=== PATIENT | male | born 1940 | race Caucasian/White ===

== ENCOUNTER 2019-03-02 06:29 | Inpatient (IN) | payer MEDICARE, OTHER, MEDICAID ==
[2019-03-02 06:57] LABS: ADD MAN DIFF? NO
[2019-03-02 06:58] LABS: WHITE BLOOD COUNT 13.9 10^3/ul (4.8-10.8)
[2019-03-02 06:58] LABS: BASOPHIL # 0.1 10^3/ul (0.0-0.1); BASOPHILS % 0.4 % (0.0-2.0); EOSINOPHILS % 0.1 % (0.0-7.0); HEMATOCRIT 39.2 % (42.0-52.0); HEMOGLOBIN 11.6 g/dl (14.0-18.0); LYMPHOCYTES # 1.3 10^3/ul (0.8-2.9); LYMPHOCYTES % 9.3 % (15.0-51.0); MEAN CORPUSCULAR HGB CONC 29.6 g/dl (32.0-37.0); MEAN PLATELET VOLUME 10.9 fl (7.4-10.4); MONOCYTE # 0.9 10^3/ul (0.3-0.9); MONOCYTES % 6.2 % (0.0-11.0); NEUTROPHIL # 11.7 10^3/ul (1.6-7.5); NEUTROPHILS % 83.7 % (39.0-77.0); PLATELET COUNT 319 10^3/UL (140-415); RED BLOOD COUNT 3.63 10^6/ul (4.70-6.10); RED CELL DISTRIBUTION WIDTH 14.6 % (11.5-14.5)
[2019-03-02] MEDS: PIPER-TAZO 3.375 GM IV (PMX) 100 ML IVPB (07:05)
[2019-03-02] MEDS: SODIUM CHLORIDE 0.9% 1L BAG IV* (07:09)
[2019-03-02 07:16] LABS: ALANINE AMINOTRANSFERASE 24 IU/L (13-69); ALBUMIN 3.6 g/dl (3.3-4.9); ALBUMIN/GLOBULIN RATIO 0.75; ALKALINE PHOSPHATASE 114 IU/L (42-121); ANION GAP 4 (5-13); ASPARTATE AMINO TRANSFERASE 14 IU/L (15-46); BILIRUBIN,INDIRECT 0.5 mg/dl (0-1.1); BILIRUBIN,TOTAL 0.5 mg/dl (0.2-1.3); BLOOD UREA NITROGEN 43 mg/dl (7-20); CALCIUM 9.3 mg/dl (8.4-10.2); CARBON DIOXIDE 33 mmol/L (21-31); CHLORIDE 120 mmol/L (97-110); CREATININE 1.77 mg/dl (0.61-1.24); GLUCOSE 169 mg/dl (70-220); POTASSIUM 5.1 mmol/L (3.5-5.1); SODIUM 157 mmol/L (135-144); TOTAL PROTEIN 8.4 g/dl (6.1-8.1)
[2019-03-02 07:18] LABS: INR 1.29; PROTIME 16.2 Sec (11.9-14.9); PT RATIO 1.3
[2019-03-02 07:19] LABS: PARTIAL THROMBOPLASTIN TIME 36.6 Sec (23.0-35.0)
[2019-03-02 07:38] LABS: ADD UMIC YES; UR ASCORBIC ACID 40 mg/dL (NEGATIVE); UR BACTERIA FEW /HPF (NONE SEEN); UR BILIRUBIN (Dip) NEGATIVE (NEGATIVE); UR BLOOD (Dip) NEGATIVE (NEGATIVE); UR CLARITY CLOUDY (CLEAR); UR COLOR AMBER (YELLOW); UR GLUCOSE (Dip) NEGATIVE (NEGATIVE); UR HYALINE CAST FEW /HPF (NONE SEEN); UR KETONES (Dip) TRACE mg/dL (NEGATIVE); UR LEUKOCYTE ESTERASE (Dip) 1+ Leu/ul (NEGATIVE); UR MUCUS FEW /HPF (NONE SEEN); UR NITRITE (Dip) NEGATIVE (NEGATIVE); UR RBC 12 /HPF (0-5); UR SPECIFIC GRAVITY (Dip) 1.024 (1.003-1.030); UR TOTAL PROTEIN (Dip) 2+ mg/dl (NEGATIVE); UR UROBILINOGEN (Dip) 1+ mg/dL (NEGATIVE); UR WBC 45 /HPF (0-5)
[2019-03-02] MEDS: VANCOMYCIN 1 GM (PMX) 250 ML IVPB (07:54)
[2019-03-02] MEDS: LORAZEPAM 2 MG INJ IV ×3 (08:27→23:02)
[2019-03-02] MEDS ORDERED: ONDANSETRON 4 MG INJ IV ×2 (08:30→13:30)
[2019-03-02] MEDS ORDERED: ACETAMINOPHEN 325 MG TAB PO (08:30)
[2019-03-02] MEDS: HALOPERIDOL 5 MG INJ IM (08:51)
[2019-03-02] MEDS: ACETAMINOPHEN 650MG/20.3ML CUP GTB (09:15)
[2019-03-02] MEDS: LIDOCAINE 1% (MPF) 5 ML VIAL SC (10:30)
[2019-03-02] MEDS: SOD CHLORIDE 0.9% 1,000 ML IV ×2 (10:30→18:11)
[2019-03-02] MEDS: NORepinephrine 8MG/250 ML (PMX 250 ML IV (10:31)
[2019-03-02 10:33] LABS: LACTIC ACID 6.7 mmol/L (0.5-2.0)
[2019-03-02] MEDS: KETOROLAC 30 MG INJ IV (11:32)
[2019-03-02 12:43] LABS: AADO2 Arterial 256.9 mmHg (7.0-24.0); Allen Test ACCEPTAB; Arterial Base Excess -0.4 mmol/L (-3.0-3); Arterial Blood Gas Oxygen Sat 95.8 mmHG (95.0-100.0); Arterial COHb 0.3 % (0.0-3.0); Arterial Fraction of Oxyhgb 95.2 % (93.0-99.0); Arterial HCO3 23.1 mmol/L (22.0-26.0); Arterial MetHb 0.3 % (0.0-1.5); Arterial pCO2 33.5 mmhg (35-45); MODE MASK - SIMPLE; Site Right Radial
[2019-03-02] MEDS ORDERED: VANCOMYCIN IV PER PHARMACY XX (13:30)
[2019-03-02] MEDS ORDERED: ALBUTEROL/IPRATROPIUM (NEB) 3 ML AMP NEB (13:30)
[2019-03-02 14:12] LABS: MAGNESIUM 2.4 mg/dl (1.7-2.5)
[2019-03-02 14:12] LABS: POTASSIUM 5.3 mmol/L (3.5-5.1)
[2019-03-02 14:25] LABS: LACTIC ACID 3.5 mmol/L (0.5-2.0)
[2019-03-02 14:42] LABS: CREATINE KINASE 106 IU/L (23-200)
[2019-03-02 14:50] LABS: VALPROATE < 10 ug/ml (50-100)
[2019-03-02 14:52] LABS: CK INDEX 1.3; CK-MB 1.42 ng/ml (0.0-2.4)
[2019-03-02 14:56] LABS: TROPONIN-I 0.044 ng/ml (0.000-0.120)
[2019-03-02] MEDS: PIPER-TAZO 2.25 GM (PMX) 50 ML IVPB (17:00)
[2019-03-02 20:00] LABS: CREATINE KINASE 226 IU/L (23-200)
[2019-03-02 20:12] LABS: CK INDEX 0.9; CK-MB 2.13 ng/ml (0.0-2.4); TROPONIN-I 0.044 ng/ml (0.000-0.120)
[2019-03-02] MEDS ORDERED: LABETALOL HCL 20MG INJ (20:17)
[2019-03-02] MEDS: LABETALOL HCL 20MG INJ IV ×2 (20:20→21:01)
[2019-03-02] MEDS: DOCUSATE SODIUM 100 MG CAP PO (20:20)
[2019-03-02] MEDS: HEPARIN 5,000 UNIT/1 ML VIAL SC (20:25)
[2019-03-02 20:28] LABS: ANION GAP 6 (5-13); BLOOD UREA NITROGEN 43 mg/dl (7-20); CALCIUM 7.8 mg/dl (8.4-10.2); CARBON DIOXIDE 24 mmol/L (21-31); CHLORIDE 126 mmol/L (97-110); CREATININE 1.73 mg/dl (0.61-1.24); GLUCOSE 91 mg/dl (70-220); SODIUM 156 mmol/L (135-144)
[2019-03-02] MEDS: ALBUTEROL/IPRATROPIUM (NEB) 3 ML AMP NEB (20:33)
[2019-03-02] MEDS: ACETAMINOPHEN 650MG/20.3ML CUP PO (23:01)
[2019-03-02] MEDS: DIVALPROEX (ER) 500 MG TAB PO (23:01)
[2019-03-02 23:31] LABS: Allen Test ACCEPTAB; Arterial Blood Gas Oxygen Sat 98.9 mmHG (95.0-100.0); Arterial COHb 0.2 % (0.0-3.0); Arterial Fraction of Oxyhgb 98.2 % (93.0-99.0); Arterial HCO3 23.7 mmol/L (22.0-26.0); Arterial MetHb 0.5 % (0.0-1.5); Blood Gas IEPAP 15/5; Blood Gas PS 10; MODE MASK - BIPAP; Site Left Radial
[2019-03-03] MEDS: LORAZEPAM 2 MG INJ IV ×3 (00:30→06:50)
[2019-03-03] MEDS: PIPER-TAZO 2.25 GM (PMX) 50 ML IVPB (00:33)
[2019-03-03] MEDS: SOD CHLORIDE 0.9% 500 ML IV ×2 (01:32→06:49)
[2019-03-03] MEDS: ALBUTEROL/IPRATROPIUM (NEB) 3 ML AMP NEB ×3 (01:55→08:43)
[2019-03-03 03:19] LABS: Allen Test ACCEPTAB; Arterial Base Excess -3.3 mmol/L (-3.0-3); Arterial COHb 0.2 % (0.0-3.0); Arterial Fraction of Oxyhgb 98.2 % (93.0-99.0); Arterial HCO3 21.1 mmol/L (22.0-26.0); Arterial MetHb 0.6 % (0.0-1.5); Arterial pCO2 35.2 mmhg (35-45); Blood Gas IEPAP 15/5; MODE MASK - BIPAP; Site Left Radial
[2019-03-03] MEDS: SOD CHLORIDE 0.9% 1,000 ML IV (03:42)
[2019-03-03] MEDS: PANTOPRAZOLE (EC) 40 MG TAB PO (05:29)
[2019-03-03 05:36] LABS: ABNORMAL IP MESSAGE 1; HEMATOCRIT 27.3 % (42.0-52.0); MEAN CORPUSCULAR HEMOGLOBIN 32.5 pg (29.0-33.0); MEAN CORPUSCULAR HGB CONC 29.3 g/dl (32.0-37.0); PLATELET COUNT 211 10^3/UL (140-415); POSITIVE DIFF @See below; RED BLOOD COUNT 2.46 10^6/ul (4.70-6.10); RED CELL DISTRIBUTION WIDTH 15.4 % (11.5-14.5)
[2019-03-03 05:36] LABS: WHITE BLOOD COUNT 9.9 10^3/ul (4.8-10.8)
[2019-03-03] MEDS: PANTOPRAZOLE 40 MG INJ IV (05:47)
[2019-03-03 06:10] LABS: ADD MAN DIFF? YES
[2019-03-03 06:11] LABS: LACTIC ACID 3.9 mmol/L (0.5-2.0)
[2019-03-03 06:29] LABS: ANION GAP 6 (5-13); BLOOD UREA NITROGEN 44 mg/dl (7-20); CALCIUM 7.4 mg/dl (8.4-10.2); CARBON DIOXIDE 24 mmol/L (21-31); CHLORIDE 129 mmol/L (97-110); CREATININE 1.76 mg/dl (0.61-1.24); GLUCOSE 76 mg/dl (70-220); PHOSPHORUS 3.1 mg/dl (2.5-4.9); POTASSIUM 4.8 mmol/L (3.5-5.1); SODIUM 159 mmol/L (135-144)
[2019-03-03 07:55] LABS: ANISOCYTOSIS 1+ (0-0); BAND NEUTROPHILS #M 5.2 10^3/ul (0.0-0.6); BAND NEUTROPHILS % (M) 53 % (0-4); BURR CELLS 1+ (0-0); GIANT THROMBO% (M) 1 % (0-0); LYMPHOCYTES % (M) 21 % (15-51); METAMYELOCYTES #M 0.7 10^3/ul (0.0-0.0); METAMYELOCYTES %M 8 % (0-0); MONOCYTES % (M) 1 % (0-11); MYELOCYTES #M 0.3 10^3/ul (0.0-0.0); MYELOCYTES % (M) 4 % (0-0); PLATELET ESTIMATE NORMAL; POLYCHROMASIA 1+ (0-0); SEG NEUT #M 1.8 10^3/ul (1.6-7.5); SEGMENTED NEUTROPHILS (M) % 13 % (39-77); SMUDGE%M 36 % (0-0); TOXIC GRANULATION 1+ (0-0)
[2019-03-03] MEDS ORDERED: ASPIRIN 81 MG TAB GTB (09:00)
[2019-03-03] MEDS ORDERED: VALPROIC ACID LIQUID CUP 250 MG/5 ML CUP GTB (09:00)
[2019-03-03] MEDS ORDERED: ASPIRIN (EC) 81 MG TAB PO (09:00)
[2019-03-03] MEDS ORDERED: CLOPIDOGREL 75 MG TAB PO (09:00)
[2019-03-03] MEDS ORDERED: POLYETHYLENE GLYCOL 17 GM PACKET GTB (09:00)
[2019-03-03] MEDS ORDERED: morphine 2 MG INJ IV (09:30)
[2019-03-03] MEDS: morphine 4 MG/ML VIAL IV (09:32)
[2019-03-03] MEDS: NORepinephrine 8MG/250 ML (PMX 250 ML IV (09:37)
[2019-03-03] MEDS ORDERED: ATROPINE 1% 5 ML OPH SL (11:30)
[2019-03-03] MEDS ORDERED: ONDANSETRON 4 MG INJ IV (11:30)
[2019-03-03] MEDS ORDERED: LORAZEPAM 2 MG INJ IV (11:30)
[2019-03-03] MEDS: morphine (DRIP) 100 MG/100 ML 100 ML IV (13:18)
[2019-03-03] MEDS ORDERED: VANCOMYCIN 1 GM 250 ML IVPB (20:00)
[2019-03-04] MEDS: morphine (DRIP) 100 MG/100 ML 100 ML IV ×2 (00:11→10:22)
[2019-03-04] MEDS ORDERED: LANSOPRAZOLE 30 MG CAP PO (06:00)
== END 2019-03-04 23:15 | disposition expired | DRG 871 ==
LOC: E/R 06:29 → MS1 03-03 19:38 → ICU 08:09
PROC: 05H533Z Insertion of Infusion Device into Right Subclavian Vein, Percutaneous Approach (ICD-10-PCS; 2019-03-02)
PROC: 5A09458 Assistance with Respiratory Ventilation, 24-96 Consecutive Hours, Intermittent Positive Airway Pressure (ICD-10-PCS; principal; 2019-03-03)
DX: A41.9 Sepsis, unspecified organism (principal); J18.9 Pneumonia, unspecified organism; R65.21 Severe sepsis with septic shock; J96.01 Acute respiratory failure with hypoxia; E87.2 Acidosis; E87.0 Hyperosmolality and hypernatremia; N39.0 Urinary tract infection, site not specified; G93.40 Encephalopathy, unspecified; Z86.73 Personal history of transient ischemic attack (TIA), and cerebral infarction without residual deficits; F03.90 Unspecified dementia, unspecified severity, without behavioral disturbance, psychotic disturbance, mood disturbance, and anxiety; Z74.01 Bed confinement status; E86.0 Dehydration; D53.1 Other megaloblastic anemias, not elsewhere classified; Z66 Do not resuscitate
CPT/HCPCS: 36600; 71045; 80048; 80053; 80164; 81001; 82550; 82553; 82803; 83605; 83735; 84100; 84132; 84484; 85025; 85610; 85730; 87040-91; 87070; 87086; 89220; 93005; 94640; 94660; 94664; 96365; 96375; 99285-25